=== PATIENT | female | born 1970 | race Caucasian/White ===

== ENCOUNTER 2019-06-29 17:08 | Emergency (ER) | payer SELFPAY ==
[2019-06-29] MEDS ORDERED: NOREPINEPHRINE BITARTRATE 4 MG/4 ML VIAL IVPB ONE (17:15)
[2019-06-29] MEDS ORDERED: DEXTROSE 5% 250ML 250 ML ONE (17:15)
[2019-06-29 17:29] VITALS: TEMP 97.9
[2019-06-29] MEDS ORDERED: NOREPINEPHRINE BITARTRATE 4 MG in DEXTROSE 5% 250ML 250 ML IVPB SCH (17:30)
[2019-06-29] MEDS ORDERED: SODIUM CHLORIDE 0.9% 1000ML 1,000 ML ONE ×2 (17:36→18:01)
--- NOTE | 2019-06-29 17:49 | RAD ---
EXAM DESCRIPTION: Chest,1 View CLINICAL HISTORY: 48 years Female, cardiac COMPARISON: 03/23/2018 TECHNIQUE: AP portable chest. FINDINGS/IMPRESSION: Mild central pulmonary fracture congestion. Streaky opacities within the lower lungs (slightly more pronounced within the left lung base) is favored to represent atelectasis. No significant pneumothorax or pleural effusion seen. The cardiomediastinal silhouette is slightly prominent. Gaseous distention of the stomach. No acute osseous abnormality. Electronically signed by: Wes Toledo DO 06/29/2019 5:47 PM CDT
--- NOTE | 2019-06-29 17:55 | ED.PDOC ---
History of Present Illness - General Chief Complaint: Unresponsive Time Seen by Provider: 06/29/19 17:53 - History of Present Illness Initial Comments: Patient presents unresponsive after being found that way by her at home. It is unknown how long she had been unconscious. EMS was called and the patient was pulseless. Chest compressions started, epinephrine 1 mg IO x two given, Jani tube successful in gaining an airway, SROS occurred shortly after. Narcan also given. No other history available. Timing/Duration: unsure Severity: severe Improving Factors: nothing Worsening Factors: nothing Associated Symptoms: other - unable to obtain history due to clinical condition Allergies/Adverse Reactions: Allergies NO KNOWN ALLERGY Allergy (Verified 06/29/19 17:14) Review of Systems - Review of Systems Unable to Obtain Due To: condition, intubated, clinical condition Physical Exam - Physical Exam General Appearance: Other - GCS 3 Eye Exam: bilateral other - Pupils dilated and nonreactive bilaterrally. no corneal reflex Ears, Nose, Throat: normal ENT inspection Neck: supple Respiratory: lungs clear, other - intubated, no crepitis Cardiovascular/Chest: normal peripheral pulses, regular rate, rhythm Gastrointestinal/Abdominal: normal bowel sounds Neurologic: other - GCS 3. Pupils dilated and nonreactive bilaterally. No corneal reflex. Skin Exam: normal color Progress - Progress Progress: 06/29/19 17:57 IV started and Levaphed started to keep systolic bp above 90. Patient was sa turating above 90% with the Jani tube. CXR showed no signs of pneumothorax. EKG showed ST depressions in leads V4-V6. FSBG 266. Labs drawn. Patient accepted for transfer by helicopter to [facility] [place] by Dr. Hester. 06/29/19 18:01 Departure - Departure Clinical Impression: Unresponsiveness, Cardiac arrest Disposition: Transfer to Hospital Condition: Serious Departure Forms: ED Discharge - Pt. Copy, Patient Portal Self Enrollment Diet: other - NPO Critical Care Note - Critical Care Note Total Time (mins): 50
[2019-06-29 17:59] VITALS: BP 92/38; O2SAT 91
== END 2019-06-29 18:00 | disposition short-term general hospital (02) ==
LOC: ER 17:08
DX: I46.9 Cardiac arrest, cause unspecified (principal); R41.82 Altered mental status, unspecified
CPT/HCPCS: 36600; 71045; 80048; 82550; 82553; 82803; 82805; 84484; 85025; 85379; 85610; 85730; 93005; 94770; J7030; J7060